=== PATIENT | male | born 1960 | race African-American/Black ===

== ENCOUNTER 2021-01-31 15:11 | Inpatient (IN) | payer OTHER ==
[2021-01-31] MEDS ORDERED: IBUPROFEN 400 MG TABLET (FP) PO PRN (20:15)
[2021-01-31] MEDS ORDERED: P-EPHED 60MG/TRIPROLIDI 2.5MG TABLET PO PRN (20:15)
[2021-01-31] MEDS ORDERED: MAG HYDROX/AL HYDROX/SIMETH 30 ML UNIT-DOSE CUP PO PRN (20:15)
[2021-01-31] MEDS ORDERED: MAGNESIUM CITRATE 300 ML BOTTLE PO PRN (20:15)
[2021-01-31] MEDS ORDERED: LOPERAMIDE HCL 2 MG CAPSULE PO PRN (20:15)
[2021-01-31] MEDS ORDERED: ACETAMINOPHEN 325 MG TABLET (FP) PO PRN (20:15)
[2021-01-31] MEDS ORDERED: MAGNESIUM HYDROX 2400MG/30ML ORAL SUSPENSION 30 ML CUP PO PRN (20:15)
[2021-01-31] MEDS ORDERED: hydrOXYzine PAMOATE 25 MG CAPSULE (FP) PO PRN (20:15)
[2021-01-31] MEDS ORDERED: guaiFENesin 200 MG/10 ML 10 ML UNIT-DOSE CUPS PO PRN (20:15)
[2021-01-31] MEDS ORDERED: METHOCARBAMOL 500 MG TABLET PO PRN (20:17)
[2021-01-31 23:50] VITALS: BMI 24.8
[2021-02-01] MEDS ORDERED: TUBERCULIN PPD 5 TU/0.1ML VIAL ID ONE (00:16)
[2021-02-01] MEDS: MELATONIN 5 MG TABLETS PO SCH ×2 (02:41→21:37)
[2021-02-01] MEDS: THIAMINE HCL 100 MG TABLET (FP) PO SCH ×2 (02:41→21:37)
[2021-02-01] MEDS: INSULIN SLIDING SCALE (NOVOLOG) 1 VIAL SQ SCH ×2 (06:36→17:07)
[2021-02-01 08:33] LABS: HEMATOCRIT 29.6 % (35.4-49); HEMOGLOBIN 9.8 GM/dL (11.7-16.9); MCH 29.6 pg (25.7-33.7); MCHC 33.1 g/dl (32.0-35.9); MEAN CELL VOLUME 89.4 fl (80-96); MEAN PLT VOLUME 7.5 fl (7.5-11.1); PLATELET COUNT 240 10^3/uL (134-434); RBC 3.31 M/mm3 (4.00-5.60); RDW 13.3 % (11.9-15.9); WHITE BLOOD COUNT 5.6 K/mm3 (4.0-10.0)
[2021-02-01 09:39] LABS: ALBUMIN 2.2 g/dl (3.4-5.0)
[2021-02-01 09:41] LABS: BLOOD UREA NITROGEN 10.4 mg/dL (7-18); CALCIUM 8.5 mg/dL (8.5-10.1)
[2021-02-01 09:42] LABS: CREATININE 0.8 mg/dL (0.55-1.3)
[2021-02-01 09:46] LABS: TOT PROT 5.2 g/dl (6.4-8.2)
[2021-02-01] MEDS ORDERED: methaDONE HCL 40 MG DISPERSABLE TABLET ONE (10:10)
[2021-02-01] MEDS ORDERED: methaDONE HCL 10 MG TABLET ONE (10:11)
[2021-02-01] MEDS: PRENATAL VITAMINS W/ FOLIC ACID TABLET (FP) PO SCH (10:15)
[2021-02-01] MEDS: NICOTINE 7 MG/24 HOURS TOPICAL PATCH TD SCH (10:16)
[2021-02-01 13:11] LABS: EPI CELLS 15 /uL (0-25.1); HYALINE CASTS 3 /uL (0-3.1); PH,URINE 7.5 (5.0-8.0); URINE APPEARANCE CLOUDY; URINE BACTERIA 7567 /uL (0-1359); URINE BILIRUBIN NEGATIVE (NEGATIVE); URINE COLOR YELLOW; URINE GLUCOSE (UA) NEGATIVE (NEGATIVE); URINE KETONE NEGATIVE (NEGATIVE); URINE LEUK ESTERASE 3+ (NEGATIVE); URINE NITRITE NEGATIVE (NEGATIVE); URINE PROTEIN NEGATIVE (NEGATIVE); URINE RBC 11 /uL (0-23.9); URINE WBC 355 /uL (0-25.8)
[2021-02-01] MEDS ORDERED: ALBUTEROL SO4 HFA INHALER IH PRN (13:56)
[2021-02-01] MEDS: LISINOPRIL 10 MG TABLET PO SCH (14:49)
[2021-02-01] MEDS: FERROUS SO4 325 MG TABLET (FP) PO SCH (17:50)
[2021-02-01] MEDS: BACLOFEN 10 MG TABLET (FP) PO SCH (21:36)
[2021-02-01] MEDS: ATORVASTATIN CA 10 MG TABLET (FP) PO SCH (21:36)
[2021-02-01] MEDS: QUEtiapine FUMARATE 50 MG TABLET PO SCH (21:37)
[2021-02-01] MEDS: BUDESONIDE/FORMETEROL FUMARATE 80/4.5 mcg INHALER IH SCH (21:38)
[2021-02-01] MEDS: CARBAMIDE PEROXIDE 6.5% OTIC 15 ML BOTTLE AU SCH (21:38)
[2021-02-02] MEDS ORDERED: methaDONE HCL 40 MG DISPERSABLE TABLET ONE (05:35)
[2021-02-02] MEDS ORDERED: methaDONE HCL 10 MG TABLET ONE (05:36)
[2021-02-02] MEDS: INSULIN SLIDING SCALE (NOVOLOG) 1 VIAL SQ SCH ×2 (06:34→16:20)
[2021-02-02] MEDS: FERROUS SO4 325 MG TABLET (FP) PO SCH ×2 (07:12→16:55)
[2021-02-02] MEDS: ASPIRIN 81 MG CHEWABLE TABLETS PO SCH (09:50)
[2021-02-02] MEDS: BACLOFEN 10 MG TABLET (FP) PO SCH ×2 (09:50→21:02)
[2021-02-02] MEDS: PRENATAL VITAMINS W/ FOLIC ACID TABLET (FP) PO SCH (09:50)
[2021-02-02] MEDS: SERTRALINE HCL 50 MG TABLET (FP) PO SCH (09:50)
[2021-02-02] MEDS: CARBAMIDE PEROXIDE 6.5% OTIC 15 ML BOTTLE AU SCH ×2 (09:50→22:07)
[2021-02-02] MEDS: BUDESONIDE/FORMETEROL FUMARATE 80/4.5 mcg INHALER IH SCH ×2 (09:51→21:03)
[2021-02-02] MEDS: NICOTINE 7 MG/24 HOURS TOPICAL PATCH TD SCH (09:57)
[2021-02-02] MEDS: LISINOPRIL 10 MG TABLET PO SCH (09:57)
[2021-02-02] MEDS: QUEtiapine FUMARATE 50 MG TABLET PO SCH (21:02)
[2021-02-02] MEDS: THIAMINE HCL 100 MG TABLET (FP) PO SCH (21:02)
[2021-02-02] MEDS: MELATONIN 5 MG TABLETS PO SCH (21:02)
[2021-02-02] MEDS: ATORVASTATIN CA 10 MG TABLET (FP) PO SCH (21:02)
[2021-02-03] MEDS ORDERED: methaDONE HCL 40 MG DISPERSABLE TABLET ONE (03:03)
[2021-02-03] MEDS ORDERED: methaDONE HCL 10 MG TABLET ONE (03:04)
[2021-02-03] MEDS: INSULIN SLIDING SCALE (NOVOLOG) 1 VIAL SQ SCH ×2 (06:41→17:49)
[2021-02-03] MEDS: FERROUS SO4 325 MG TABLET (FP) PO SCH ×2 (07:06→18:00)
[2021-02-03] MEDS: LISINOPRIL 10 MG TABLET PO SCH (10:10)
[2021-02-03] MEDS: PRENATAL VITAMINS W/ FOLIC ACID TABLET (FP) PO SCH (10:11)
[2021-02-03] MEDS: ASPIRIN 81 MG CHEWABLE TABLETS PO SCH (10:11)
[2021-02-03] MEDS: NICOTINE 7 MG/24 HOURS TOPICAL PATCH TD SCH (10:11)
[2021-02-03] MEDS: CARBAMIDE PEROXIDE 6.5% OTIC 15 ML BOTTLE AU SCH ×2 (10:11→22:09)
[2021-02-03] MEDS: BACLOFEN 10 MG TABLET (FP) PO SCH ×2 (10:11→22:08)
[2021-02-03] MEDS: SERTRALINE HCL 50 MG TABLET (FP) PO SCH (10:11)
[2021-02-03] MEDS: BUDESONIDE/FORMETEROL FUMARATE 80/4.5 mcg INHALER IH SCH ×2 (10:37→22:10)
[2021-02-03] MEDS: MELATONIN 5 MG TABLETS PO SCH (22:08)
[2021-02-03] MEDS: THIAMINE HCL 100 MG TABLET (FP) PO SCH (22:08)
[2021-02-03] MEDS: ATORVASTATIN CA 10 MG TABLET (FP) PO SCH (22:08)
[2021-02-03] MEDS: QUEtiapine FUMARATE 50 MG TABLET PO SCH (22:08)
[2021-02-04] MEDS ORDERED: methaDONE HCL 40 MG DISPERSABLE TABLET ONE (03:06)
[2021-02-04] MEDS ORDERED: methaDONE HCL 10 MG TABLET ONE (03:06)
[2021-02-04] MEDS: INSULIN SLIDING SCALE (NOVOLOG) 1 VIAL SQ SCH ×2 (07:00→17:46)
[2021-02-04] MEDS: FERROUS SO4 325 MG TABLET (FP) PO SCH ×2 (07:00→17:41)
[2021-02-04] MEDS: ASPIRIN 81 MG CHEWABLE TABLETS PO SCH (09:48)
[2021-02-04] MEDS: SERTRALINE HCL 50 MG TABLET (FP) PO SCH (09:48)
[2021-02-04] MEDS: LISINOPRIL 10 MG TABLET PO SCH (09:48)
[2021-02-04] MEDS: BACLOFEN 10 MG TABLET (FP) PO SCH ×2 (09:49→20:59)
[2021-02-04] MEDS: PRENATAL VITAMINS W/ FOLIC ACID TABLET (FP) PO SCH (09:49)
[2021-02-04] MEDS: NICOTINE 7 MG/24 HOURS TOPICAL PATCH TD SCH (09:49)
[2021-02-04] MEDS: BUDESONIDE/FORMETEROL FUMARATE 80/4.5 mcg INHALER IH SCH ×2 (09:49→21:02)
[2021-02-04] MEDS: CARBAMIDE PEROXIDE 6.5% OTIC 15 ML BOTTLE AU SCH ×2 (09:50→21:02)
[2021-02-04] MEDS: NICOTINE 10 MG CARTRIDGE (INHALER) IH PRN ×2 (11:10→15:45)
[2021-02-04] MEDS: MELATONIN 5 MG TABLETS PO SCH (21:00)
[2021-02-04] MEDS: QUEtiapine FUMARATE 50 MG TABLET PO SCH (21:00)
[2021-02-04] MEDS: THIAMINE HCL 100 MG TABLET (FP) PO SCH (21:00)
[2021-02-04] MEDS: ATORVASTATIN CA 10 MG TABLET (FP) PO SCH (21:00)
[2021-02-05] MEDS ORDERED: methaDONE HCL 40 MG DISPERSABLE TABLET ONE (03:07)
[2021-02-05] MEDS ORDERED: methaDONE HCL 10 MG TABLET ONE (03:08)
[2021-02-05] MEDS: INSULIN SLIDING SCALE (NOVOLOG) 1 VIAL SQ SCH ×2 (08:03→17:29)
[2021-02-05] MEDS: FERROUS SO4 325 MG TABLET (FP) PO SCH ×2 (08:50→17:30)
[2021-02-05] MEDS: SERTRALINE HCL 50 MG TABLET (FP) PO SCH (09:13)
[2021-02-05] MEDS: LISINOPRIL 10 MG TABLET PO SCH (09:13)
[2021-02-05] MEDS: BACLOFEN 10 MG TABLET (FP) PO SCH ×2 (09:14→21:39)
[2021-02-05] MEDS: ASPIRIN 81 MG CHEWABLE TABLETS PO SCH (09:14)
[2021-02-05] MEDS: BUDESONIDE/FORMETEROL FUMARATE 80/4.5 mcg INHALER IH SCH ×2 (09:15→21:40)
[2021-02-05] MEDS: PRENATAL VITAMINS W/ FOLIC ACID TABLET (FP) PO SCH (09:15)
[2021-02-05] MEDS: NICOTINE 7 MG/24 HOURS TOPICAL PATCH TD SCH (09:17)
[2021-02-05] MEDS: NICOTINE 10 MG CARTRIDGE (INHALER) IH PRN ×2 (09:18→21:42)
[2021-02-05] MEDS: CARBAMIDE PEROXIDE 6.5% OTIC 15 ML BOTTLE AU SCH ×2 (10:53→21:41)
[2021-02-05 11:38] LABS: CALCIUM 8.9 mg/dL (8.5-10.1)
[2021-02-05 11:39] LABS: BLOOD UREA NITROGEN 15.1 mg/dL (7-18)
[2021-02-05 11:41] LABS: HEMATOCRIT 32.8 % (35.4-49); HEMOGLOBIN 10.7 GM/dL (11.7-16.9); MCH 29.2 pg (25.7-33.7); MCHC 32.7 g/dl (32.0-35.9); MEAN CELL VOLUME 89.3 fl (80-96); MEAN PLT VOLUME 8.3 fl (7.5-11.1); PLATELET COUNT 252 10^3/uL (134-434); RBC 3.67 M/mm3 (4.00-5.60); RDW 13.8 % (11.9-15.9); WHITE BLOOD COUNT 8.2 K/mm3 (4.0-10.0)
[2021-02-05 11:42] LABS: CREATININE 0.7 mg/dL (0.55-1.3)
[2021-02-05 11:43] LABS: BILIRUBIN,TOTAL 0.4 mg/dL (0.2-1)
[2021-02-05 11:44] LABS: TOT PROT 6.4 g/dl (6.4-8.2)
[2021-02-05 11:51] LABS: ALBUMIN 2.6 g/dl (3.4-5.0)
[2021-02-05] MEDS: ATORVASTATIN CA 10 MG TABLET (FP) PO SCH (21:39)
[2021-02-05] MEDS: QUEtiapine FUMARATE 50 MG TABLET PO SCH (21:39)
[2021-02-05] MEDS: MELATONIN 5 MG TABLETS PO SCH (21:40)
[2021-02-05] MEDS: THIAMINE HCL 100 MG TABLET (FP) PO SCH (21:40)
[2021-02-06] MEDS ORDERED: methaDONE HCL 40 MG DISPERSABLE TABLET ONE (03:11)
[2021-02-06] MEDS ORDERED: methaDONE HCL 10 MG TABLET ONE (03:12)
[2021-02-06] MEDS: INSULIN SLIDING SCALE (NOVOLOG) 1 VIAL SQ SCH ×2 (06:12→17:36)
[2021-02-06] MEDS: FERROUS SO4 325 MG TABLET (FP) PO SCH ×2 (07:30→17:13)
[2021-02-06] MEDS: ASPIRIN 81 MG CHEWABLE TABLETS PO SCH (09:48)
[2021-02-06] MEDS: SERTRALINE HCL 50 MG TABLET (FP) PO SCH (09:48)
[2021-02-06] MEDS: BACLOFEN 10 MG TABLET (FP) PO SCH ×2 (09:48→21:04)
[2021-02-06] MEDS: LISINOPRIL 10 MG TABLET PO SCH (09:48)
[2021-02-06] MEDS: PRENATAL VITAMINS W/ FOLIC ACID TABLET (FP) PO SCH (09:48)
[2021-02-06] MEDS: CARBAMIDE PEROXIDE 6.5% OTIC 15 ML BOTTLE AU SCH ×2 (09:49→21:05)
[2021-02-06] MEDS: BUDESONIDE/FORMETEROL FUMARATE 80/4.5 mcg INHALER IH SCH ×2 (09:49→23:23)
[2021-02-06] MEDS: NICOTINE 7 MG/24 HOURS TOPICAL PATCH TD SCH (09:49)
[2021-02-06] MEDS: NICOTINE 10 MG CARTRIDGE (INHALER) IH PRN ×2 (14:06→20:02)
[2021-02-06] MEDS: ATORVASTATIN CA 10 MG TABLET (FP) PO SCH (21:04)
[2021-02-06] MEDS: MELATONIN 5 MG TABLETS PO SCH (21:05)
[2021-02-06] MEDS: QUEtiapine FUMARATE 50 MG TABLET PO SCH (21:05)
[2021-02-06] MEDS: THIAMINE HCL 100 MG TABLET (FP) PO SCH (21:05)
[2021-02-07] MEDS ORDERED: methaDONE HCL 40 MG DISPERSABLE TABLET ONE (03:14)
[2021-02-07] MEDS ORDERED: methaDONE HCL 10 MG TABLET ONE (03:15)
[2021-02-07] MEDS: INSULIN SLIDING SCALE (NOVOLOG) 1 VIAL SQ SCH ×2 (06:46→16:48)
[2021-02-07] MEDS: FERROUS SO4 325 MG TABLET (FP) PO SCH ×2 (07:44→17:56)
[2021-02-07] MEDS ORDERED: PT OWN MED DRAWER 7, Y5N ONE (09:21)
[2021-02-07] MEDS: ASPIRIN 81 MG CHEWABLE TABLETS PO SCH (10:38)
[2021-02-07] MEDS: BACLOFEN 10 MG TABLET (FP) PO SCH ×2 (10:38→21:41)
[2021-02-07] MEDS: NICOTINE 7 MG/24 HOURS TOPICAL PATCH TD SCH (10:38)
[2021-02-07] MEDS: PRENATAL VITAMINS W/ FOLIC ACID TABLET (FP) PO SCH (10:38)
[2021-02-07] MEDS: SERTRALINE HCL 50 MG TABLET (FP) PO SCH (10:38)
[2021-02-07] MEDS: LISINOPRIL 10 MG TABLET PO SCH (10:38)
[2021-02-07] MEDS: BUDESONIDE/FORMETEROL FUMARATE 80/4.5 mcg INHALER IH SCH ×2 (10:39→21:42)
[2021-02-07] MEDS: NICOTINE 10 MG CARTRIDGE (INHALER) IH PRN ×2 (10:39→21:42)
[2021-02-07] MEDS: CARBAMIDE PEROXIDE 6.5% OTIC 15 ML BOTTLE AU SCH ×2 (10:40→21:42)
[2021-02-07] MEDS: ATORVASTATIN CA 10 MG TABLET (FP) PO SCH (21:41)
[2021-02-07] MEDS: QUEtiapine FUMARATE 50 MG TABLET PO SCH (21:41)
[2021-02-07] MEDS: MELATONIN 5 MG TABLETS PO SCH (21:42)
[2021-02-07] MEDS: THIAMINE HCL 100 MG TABLET (FP) PO SCH (21:42)
[2021-02-08] MEDS ORDERED: methaDONE HCL 10 MG TABLET ONE (03:15)
[2021-02-08] MEDS ORDERED: methaDONE HCL 40 MG DISPERSABLE TABLET ONE (03:15)
[2021-02-08] MEDS: INSULIN SLIDING SCALE (NOVOLOG) 1 VIAL SQ SCH ×2 (06:28→17:48)
[2021-02-08] MEDS: FERROUS SO4 325 MG TABLET (FP) PO SCH ×2 (07:10→18:22)
[2021-02-08] MEDS: ASPIRIN 81 MG CHEWABLE TABLETS PO SCH (09:37)
[2021-02-08] MEDS: LISINOPRIL 10 MG TABLET PO SCH (09:37)
[2021-02-08] MEDS: BACLOFEN 10 MG TABLET (FP) PO SCH ×2 (09:37→21:11)
[2021-02-08] MEDS: SERTRALINE HCL 50 MG TABLET (FP) PO SCH (09:37)
[2021-02-08] MEDS: NICOTINE 7 MG/24 HOURS TOPICAL PATCH TD SCH (09:38)
[2021-02-08] MEDS: CARBAMIDE PEROXIDE 6.5% OTIC 15 ML BOTTLE AU SCH (09:38)
[2021-02-08] MEDS: NICOTINE 10 MG CARTRIDGE (INHALER) IH PRN (09:39)
[2021-02-08] MEDS: BUDESONIDE/FORMETEROL FUMARATE 80/4.5 mcg INHALER IH SCH ×2 (10:47→21:12)
[2021-02-08] MEDS: PRENATAL VITAMINS W/ FOLIC ACID TABLET (FP) PO SCH (10:47)
[2021-02-08] MEDS: QUEtiapine FUMARATE 50 MG TABLET PO SCH (21:10)
[2021-02-08] MEDS: THIAMINE HCL 100 MG TABLET (FP) PO SCH (21:10)
[2021-02-08] MEDS: ATORVASTATIN CA 10 MG TABLET (FP) PO SCH (21:10)
[2021-02-08] MEDS: MELATONIN 5 MG TABLETS PO SCH (21:11)
[2021-02-09] MEDS ORDERED: methaDONE HCL 40 MG DISPERSABLE TABLET ONE (03:22)
[2021-02-09] MEDS ORDERED: methaDONE HCL 10 MG TABLET ONE (03:23)
[2021-02-09] MEDS: INSULIN SLIDING SCALE (NOVOLOG) 1 VIAL SQ SCH ×2 (06:44→17:37)
[2021-02-09] MEDS: FERROUS SO4 325 MG TABLET (FP) PO SCH ×2 (07:13→17:15)
[2021-02-09] MEDS: SERTRALINE HCL 50 MG TABLET (FP) PO SCH (10:30)
[2021-02-09] MEDS: PRENATAL VITAMINS W/ FOLIC ACID TABLET (FP) PO SCH (10:30)
[2021-02-09] MEDS: BACLOFEN 10 MG TABLET (FP) PO SCH ×2 (10:30→21:36)
[2021-02-09] MEDS: ASPIRIN 81 MG CHEWABLE TABLETS PO SCH (10:30)
[2021-02-09] MEDS: BUDESONIDE/FORMETEROL FUMARATE 80/4.5 mcg INHALER IH SCH ×2 (10:30→21:37)
[2021-02-09] MEDS: LISINOPRIL 10 MG TABLET PO SCH (10:30)
[2021-02-09] MEDS: NICOTINE 7 MG/24 HOURS TOPICAL PATCH TD SCH (10:30)
[2021-02-09] MEDS: NICOTINE 10 MG CARTRIDGE (INHALER) IH PRN ×3 (14:20→21:37)
[2021-02-09] MEDS: ATORVASTATIN CA 10 MG TABLET (FP) PO SCH (21:36)
[2021-02-09] MEDS: THIAMINE HCL 100 MG TABLET (FP) PO SCH (21:37)
[2021-02-09] MEDS: MELATONIN 5 MG TABLETS PO SCH (21:37)
[2021-02-09] MEDS: QUEtiapine FUMARATE 50 MG TABLET PO SCH (21:37)
[2021-02-10] MEDS ORDERED: methaDONE HCL 10 MG TABLET ONE (02:52)
[2021-02-10] MEDS ORDERED: methaDONE HCL 40 MG DISPERSABLE TABLET ONE (02:52)
[2021-02-10] MEDS: INSULIN SLIDING SCALE (NOVOLOG) 1 VIAL SQ SCH ×2 (06:40→17:21)
[2021-02-10] MEDS: FERROUS SO4 325 MG TABLET (FP) PO SCH ×2 (07:30→17:21)
[2021-02-10] MEDS: PRENATAL VITAMINS W/ FOLIC ACID TABLET (FP) PO SCH (09:36)
[2021-02-10] MEDS: BACLOFEN 10 MG TABLET (FP) PO SCH ×2 (09:36→21:04)
[2021-02-10] MEDS: ASPIRIN 81 MG CHEWABLE TABLETS PO SCH (09:36)
[2021-02-10] MEDS: NICOTINE 7 MG/24 HOURS TOPICAL PATCH TD SCH (09:37)
[2021-02-10] MEDS: BUDESONIDE/FORMETEROL FUMARATE 80/4.5 mcg INHALER IH SCH ×2 (09:37→21:05)
[2021-02-10] MEDS: NICOTINE 10 MG CARTRIDGE (INHALER) IH PRN (09:37)
[2021-02-10] MEDS: SERTRALINE HCL 50 MG TABLET (FP) PO SCH (09:37)
[2021-02-10] MEDS: LISINOPRIL 10 MG TABLET PO SCH (09:37)
[2021-02-10] MEDS: ATORVASTATIN CA 10 MG TABLET (FP) PO SCH (21:04)
[2021-02-10] MEDS: MELATONIN 5 MG TABLETS PO SCH (21:04)
[2021-02-10] MEDS: QUEtiapine FUMARATE 50 MG TABLET PO SCH (21:04)
[2021-02-10] MEDS: THIAMINE HCL 100 MG TABLET (FP) PO SCH (21:05)
[2021-02-11] MEDS ORDERED: methaDONE HCL 40 MG DISPERSABLE TABLET ONE (03:18)
[2021-02-11] MEDS ORDERED: methaDONE HCL 10 MG TABLET ONE (03:18)
[2021-02-11] MEDS: INSULIN SLIDING SCALE (NOVOLOG) 1 VIAL SQ SCH ×2 (06:54→17:13)
[2021-02-11] MEDS: FERROUS SO4 325 MG TABLET (FP) PO SCH ×2 (07:08→17:11)
[2021-02-11] MEDS: PRENATAL VITAMINS W/ FOLIC ACID TABLET (FP) PO SCH (10:41)
[2021-02-11] MEDS: LISINOPRIL 10 MG TABLET PO SCH (10:41)
[2021-02-11] MEDS: SERTRALINE HCL 50 MG TABLET (FP) PO SCH (10:42)
[2021-02-11] MEDS: BACLOFEN 10 MG TABLET (FP) PO SCH ×2 (10:42→21:28)
[2021-02-11] MEDS: ASPIRIN 81 MG CHEWABLE TABLETS PO SCH (10:42)
[2021-02-11] MEDS: NICOTINE 7 MG/24 HOURS TOPICAL PATCH TD SCH (10:42)
[2021-02-11] MEDS: BUDESONIDE/FORMETEROL FUMARATE 80/4.5 mcg INHALER IH SCH ×2 (10:43→21:28)
[2021-02-11] MEDS: NICOTINE 10 MG CARTRIDGE (INHALER) IH PRN ×3 (10:45→17:12)
[2021-02-11] MEDS: MELATONIN 5 MG TABLETS PO SCH (21:27)
[2021-02-11] MEDS: THIAMINE HCL 100 MG TABLET (FP) PO SCH (21:27)
[2021-02-11] MEDS: ATORVASTATIN CA 10 MG TABLET (FP) PO SCH (21:28)
[2021-02-11] MEDS: QUEtiapine FUMARATE 50 MG TABLET PO SCH (21:28)
[2021-02-12] MEDS ORDERED: methaDONE HCL 40 MG DISPERSABLE TABLET ONE (03:16)
[2021-02-12] MEDS ORDERED: methaDONE HCL 10 MG TABLET ONE (03:16)
[2021-02-12] MEDS: INSULIN SLIDING SCALE (NOVOLOG) 1 VIAL SQ SCH ×2 (06:39→17:30)
[2021-02-12] MEDS: FERROUS SO4 325 MG TABLET (FP) PO SCH ×2 (07:08→18:20)
[2021-02-12] MEDS: ASPIRIN 81 MG CHEWABLE TABLETS PO SCH (09:45)
[2021-02-12] MEDS: SERTRALINE HCL 50 MG TABLET (FP) PO SCH (09:45)
[2021-02-12] MEDS: NICOTINE 7 MG/24 HOURS TOPICAL PATCH TD SCH (09:45)
[2021-02-12] MEDS: PRENATAL VITAMINS W/ FOLIC ACID TABLET (FP) PO SCH (09:45)
[2021-02-12] MEDS: BACLOFEN 10 MG TABLET (FP) PO SCH ×2 (09:45→21:02)
[2021-02-12] MEDS: BUDESONIDE/FORMETEROL FUMARATE 80/4.5 mcg INHALER IH SCH ×2 (09:46→21:03)
[2021-02-12] MEDS: LISINOPRIL 10 MG TABLET PO SCH (09:46)
[2021-02-12] MEDS: NICOTINE 10 MG CARTRIDGE (INHALER) IH PRN (11:12)
[2021-02-12] MEDS: ATORVASTATIN CA 10 MG TABLET (FP) PO SCH (21:02)
[2021-02-12] MEDS: QUEtiapine FUMARATE 50 MG TABLET PO SCH (21:02)
[2021-02-12] MEDS: MELATONIN 5 MG TABLETS PO SCH (21:02)
[2021-02-12] MEDS: THIAMINE HCL 100 MG TABLET (FP) PO SCH (21:02)
[2021-02-13] MEDS ORDERED: methaDONE HCL 40 MG DISPERSABLE TABLET ONE (03:14)
[2021-02-13] MEDS ORDERED: methaDONE HCL 10 MG TABLET ONE (03:14)
[2021-02-13] MEDS: INSULIN SLIDING SCALE (NOVOLOG) 1 VIAL SQ SCH ×2 (06:13→17:23)
[2021-02-13] MEDS: FERROUS SO4 325 MG TABLET (FP) PO SCH ×2 (07:17→17:50)
[2021-02-13 07:20] VITALS: TEMP 98.8
[2021-02-13] MEDS: NICOTINE 10 MG CARTRIDGE (INHALER) IH PRN (09:34)
[2021-02-13] MEDS: ASPIRIN 81 MG CHEWABLE TABLETS PO SCH (10:20)
[2021-02-13] MEDS: LISINOPRIL 10 MG TABLET PO SCH (10:20)
[2021-02-13] MEDS: PRENATAL VITAMINS W/ FOLIC ACID TABLET (FP) PO SCH (10:20)
[2021-02-13] MEDS: NICOTINE 7 MG/24 HOURS TOPICAL PATCH TD SCH (10:20)
[2021-02-13] MEDS: BACLOFEN 10 MG TABLET (FP) PO SCH ×2 (10:20→21:30)
[2021-02-13] MEDS: SERTRALINE HCL 50 MG TABLET (FP) PO SCH (10:20)
[2021-02-13] MEDS: BUDESONIDE/FORMETEROL FUMARATE 80/4.5 mcg INHALER IH SCH ×2 (10:21→21:30)
[2021-02-13] MEDS: THIAMINE HCL 100 MG TABLET (FP) PO SCH (21:30)
[2021-02-13] MEDS: MELATONIN 5 MG TABLETS PO SCH (21:30)
[2021-02-13] MEDS: ATORVASTATIN CA 10 MG TABLET (FP) PO SCH (21:30)
[2021-02-13] MEDS: QUEtiapine FUMARATE 50 MG TABLET PO SCH (21:30)
[2021-02-14] MEDS ORDERED: methaDONE HCL 40 MG DISPERSABLE TABLET ONE (03:39)
[2021-02-14] MEDS ORDERED: methaDONE HCL 10 MG TABLET ONE (03:39)
[2021-02-14] MEDS: INSULIN SLIDING SCALE (NOVOLOG) 1 VIAL SQ SCH (06:30)
[2021-02-14 06:51] VITALS: BP 143/76; PULSE 85
[2021-02-14] MEDS: FERROUS SO4 325 MG TABLET (FP) PO SCH (07:15)
[2021-02-14] MEDS: ASPIRIN 81 MG CHEWABLE TABLETS PO SCH (09:02)
[2021-02-14] MEDS: SERTRALINE HCL 50 MG TABLET (FP) PO SCH (09:02)
[2021-02-14] MEDS: LISINOPRIL 10 MG TABLET PO SCH (09:02)
[2021-02-14] MEDS: NICOTINE 7 MG/24 HOURS TOPICAL PATCH TD SCH (09:02)
[2021-02-14] MEDS: BACLOFEN 10 MG TABLET (FP) PO SCH (09:02)
[2021-02-14] MEDS: PRENATAL VITAMINS W/ FOLIC ACID TABLET (FP) PO SCH (09:02)
[2021-02-14] MEDS: BUDESONIDE/FORMETEROL FUMARATE 80/4.5 mcg INHALER IH SCH (09:04)
== END 2021-02-14 09:45 | disposition home or self-care (01) | DRG 772 ==
LOC: YASAS 15:11 → Y3W 23:13
PROVIDERS: ADMIT Allergy & Immunology; ATTEND Allergy & Immunology
PROC: HZ42ZZZ Group Counseling for Substance Abuse Treatment, Cognitive-Behavioral (ICD-10-PCS; principal; 2021-01-31)
DX: F14.20 Cocaine dependence, uncomplicated (principal); F11.20 Opioid dependence, uncomplicated; F17.210 Nicotine dependence, cigarettes, uncomplicated; I10 Essential (primary) hypertension; E11.9 Type 2 diabetes mellitus without complications; J45.909 Unspecified asthma, uncomplicated; Z56.0 Unemployment, unspecified; Z59.0 Homelessness
CPT/HCPCS: 36415; 80053; 81003; 82962; 85027; 86780; 93005; 93010; C9803; J0475; U0003; U0005